=== PATIENT | female | born 1980 | race Caucasian/White ===

== ENCOUNTER → 2023-05-12 | Outpatient (CLI) | payer BC ==
--- NOTE | 2023-05-12 16:02 | P.SLEEP ---
History of Present Illness DATE: 05/12/2023 CONSULTATION/NEW PATIENT EVALUATION HISTORY OF PRESENT ILLNESS/SLEEP-WAKE EVALUATION: 43-year-old lady had been evaluated in the sleep center for insomnia and possible obstructive sleep apnea hypopnea syndrome. SLEEP SCHEDULE: Usually sleep schedule 1:30-3:30 a.m. to 7-9:30 a.m on weekdays and from 2:30-4 AM until 10-11 AM on weekend. FALLING ASLEEP: Patient has significant Problems with the falling asleep, that is why she is trying to go to bed later. No TV in bedroom, no computer and bedroom, she does not watch clock in bedroom. DURING SLEEP: Patient sees by himself so no clear information about snoring. Patient may wake up from sleep once. Questionable occasional history of hypo- logical hallucinations. No history of cataplexy. DURING THE DAY/WAKE STATE: In the morning patient wake up tired, has difficulties to pay attention, has problems with concentration, irritability and anxiety.. [place] sleepiness scale is 0. Patient doesn't take naps. PAST MEDICAL HISTORY: Hypertension, hypothyroidism, ADHD. PAST SURGICAL HISTORY: LEEP procedure, breast biopsy. MEDICATIONS: Hydrochlorothiazide 25 mg once a day, levothyroxine 25 g once a day, Vyvanse 60 mg once a day, olmesartan 20 mg once a day, zolpidem 510 milligrams as needed. SOCIAL HISTORY: Positive history of smoking half pack a day for 26 years, alcohol consumption occasional. FAMILY HISTORY: Asthma, stroke, cancer. REVIEW OF SYSTEMS: Difficulties to initiate sleep, restless leg symptoms. No fevers. No double vision. No recent chest pain. No shortness of breath. No abdominal pain. No bleeding episodes. No blood in urine. No seizure episodes. PHYSICAL EXAMINATION: GENERAL: A pleasant patient without any distress. VITAL SIGNS: BP 125/87 , HR 109 , RR 15 , weight 168.2 pounds, height 5 foot 4 inches, body mass index 28.8 . HEENT: PERRLA, EOMI. Evaluation of oropharynx showed tongue protrudes midline, low position of soft palate Mallampati 4. NECK: Supple. No JVD. Thyroid is not palpable. 14 inches in circumference. LUNGS: Clear to percussion and to auscultation. Good air exchange. No wheezing or rhonchi. HEART: S1, S2 regular. No murmurs, gallops or rubs. ABDOMEN: Soft and nontender. Bowel sounds are present. No organomegaly appreciated. EXTREMITIES: No clubbing or cyanosis. [employer]: Awake, alert, and oriented x3. Cranial nerves 2 to 7 intact. There is no fasciculation or atrophy noted. No focal deficits observed. ASSESSMENT: 1. Difficulties to initiate sleep. Psychophysiological insomnia. There is a possibility of sleep state misperception. 2. Sleep delay syndrome. 3. Restless leg symptoms. 4. Extremely low position of soft palate Mallampati 4. Possible obstructive sleep apnea hypopnea syndrome. 5 hypertension. 6 . History of ADHD. 7. Hypothyroidism. PLAN: 1. Polysomnography for evaluation of patient's breathing during sleep and to check for possible periodic limb movements. Because of significant insomnia it will be difficult to proceed with home sleep apnea test. 2. I discussed with patient psychological techniques for treatment of insomnia including steamers control, paradoxical intention. 3. Preferable position during sleep on the side. 4. No driving if patient feels any sleepiness. Patient is aware of civil and criminal liability for unsafe driving. 5. Sleep hygiene with regular sleep time for at least 7.5-8 hours. 6. Watching weight. 7. Patient should increased amount of physical activity during the day. 8. As much as possible bright light exposure in the morning, if necessary to use light machine. To decrease amount of exposure to the light in the evening. Thank you very much for referring this patient for consultation. Sincerely, Jordan Light MD, PhD, FAASM. Diplomat of [place] [employer], Sleep Medicine Board by [place] [employer] [place] [employer] Digital [employer] of [facility] - Sleep Note Sleep Note: Temperature: Pulse Rate: Respiratory Rate: Blood Pressure: SpO2: Height: Weight: BMI: Neck Circumference:
== END ==
LOC: 3 N SLEEP 15:08
PROVIDERS: ATTEND Internal Medicine
DX: F51.04 Psychophysiologic insomnia (principal); I10 Essential (primary) hypertension; E03.9 Hypothyroidism, unspecified; G25.81 Restless legs syndrome; F90.9 Attention-deficit hyperactivity disorder, unspecified type; F17.210 Nicotine dependence, cigarettes, uncomplicated; Z79.890 Hormone replacement therapy
CPT/HCPCS: 99211